=== PATIENT | female | born 1965 | race Caucasian/White ===

== ENCOUNTER 2019-06-06 15:05 | Emergency (ER) | payer OTHER ==
[~2019-06-06] VITALS: Ht 162.6 cm; Wt 64.9 kg
[~2019-06-06 15:05] MED LIST: AMO500 PO; BIA500 PO; ECO81 PO; LAC PO; PRI20 PO; SIMVASTATIN10 M1 PO
[2019-06-06 15:10] VITALS: Ht 162.6 cm; Wt 64.9 kg
[2019-06-06 17:15] VITALS: BP 115/69
== END 2019-06-06 17:15 | disposition home or self-care (01) ==
LOC: ED 15:05
DX: R10.13 Epigastric pain (principal); Z88.5 Allergy status to narcotic agent